=== PATIENT | male | born 1980 | race Two or more races ===

== ENCOUNTER 2022-01-16 03:36 | Emergency (ER) | payer SELFPAY ==
[2022-01-16 04:03] VITALS: BMI 25.7
[2022-01-16] MEDS ORDERED: MAG HYDROX/AL HYDROX/SIMETH 30 ML UNIT-DOSE CUP PO ONE (04:04)
[2022-01-16] MEDS ORDERED: FAMOTIDINE 20 MG/50 ML IVPB 20 MG/50 ML MG IVPB ONE (04:04)
[2022-01-16] MEDS ORDERED: ACETAMINOPHEN 1000 MG/100 ML BAG IVPB ONE (04:04)
[2022-01-16 05:04] LABS: CALCIUM 8.7 mg/dL (8.5-10.1)
[2022-01-16 05:05] LABS: ALBUMIN 4.2 g/dl (3.4-5.0); BLOOD UREA NITROGEN 8.8 mg/dL (7-18); MAGNESIUM 2.1 mg/dL (1.8-2.4)
[2022-01-16 05:06] LABS: HEMATOCRIT 45.3 % (35.4-49); HEMOGLOBIN 15.6 GM/dL (11.7-16.9); MCH 30.9 pg (25.7-33.7); MCHC 34.5 g/dl (32.0-35.9); MEAN CELL VOLUME 89.5 fl (80-96); MEAN PLT VOLUME 9.3 fl (7.5-11.1); PLATELET COUNT 227 10^3/uL (134-434); RBC 5.06 M/mm3 (4.00-5.60); RDW 12.8 % (11.9-15.9); WHITE BLOOD COUNT 12.9 K/mm3 (4.0-10.0)
[2022-01-16 05:08] LABS: CREATININE 0.7 mg/dL (0.55-1.3)
[2022-01-16 05:09] LABS: BILIRUBIN,TOTAL 0.6 mg/dL (0.2-1)
[2022-01-16 05:10] LABS: TOT PROT 7.8 g/dl (6.4-8.2)
[2022-01-16 06:21] VITALS: BP 135/81; PULSE 75; TEMP 98.3
[2022-01-16 10:24] LABS: ANISOCYTOSIS 0; HELMET CELLS 0; HOWELL-JOLLY BODIES 0; MACROCYTOSIS 0; OVALOCYTE 0; ROULEAU 0; SICKELED CELLS 0; TARGET CELLS 0; TEAR DROP CELLS 0; TOXIC GRANULATION 0
== END 2022-01-16 06:38 | disposition home or self-care (01) ==
LOC: JER 03:36
PROC: 3E033GC Introduction of Other Therapeutic Substance into Peripheral Vein, Percutaneous Approach (ICD-10-PCS; principal; 2022-01-16)
DX: R10.13 Epigastric pain (principal)
CPT/HCPCS: 36415; 71046-TC-FY; 80053; 83690; 83735; 84484; 85025; 93005; 93010; 99285-25

== ENCOUNTER 2024-01-31 02:58 | Emergency (ER) | payer SELFPAY ==
[2024-01-31 03:05] VITALS: BMI 30.9
[2024-01-31] MEDS ORDERED: MAG HYDROX/AL HYDROX/SIMETH 30 ML UNIT-DOSE CUP ONE (04:35)
[2024-01-31] MEDS: ONDANSETRON 4 MG/2 ML VIAL IVPUSH ONE (04:50)
[2024-01-31] MEDS: MAG HYDROX/AL HYDROX/SIMETH 30 ML UNIT-DOSE CUP PO ONE (04:50)
[2024-01-31] MEDS: FAMOTIDINE 20 MG/50 ML IVPB 20 MG in PREMIX 50 IVPB ONE (04:50)
[2024-01-31] MEDS: ACETAMINOPHEN 1000 MG/100 ML BAG IVPB ONE (04:50)
[2024-01-31] MEDS ORDERED: ACETAMINOPHEN INJECTION 100 ML IVPB ONE (04:51)
[2024-01-31] MEDS ORDERED: ONDANSETRON 4 MG/2 ML VIAL ONE (04:51)
[2024-01-31] MEDS ORDERED: FAMOTIDINE 20 MG/50 ML IVPB 20 MG/50 ML MG IVPB ONE (04:52)
[2024-01-31 05:26] LABS: BASO % 0.5 % (0-2.0); EOS % 0.2 % (0-4.5); HEMATOCRIT 45.2 % (35.4-49); HEMOGLOBIN 15.9 GM/dL (11.7-16.9); LYMPH % 7.9 % (8-40); MCH 31.6 pg (25.7-33.7); MCHC 35.1 g/dl (32.0-35.9); MEAN PLT VOLUME 9.3 fl (7.5-11.1); MONO % 3.4 % (3.8-10.2); PLATELET COUNT 215 10^3/uL (134-434); RBC 5.02 M/mm3 (4.00-5.60); RDW 12.9 % (11.9-15.9); WHITE BLOOD COUNT 10.9 K/mm3 (4.0-10.0)
[2024-01-31 05:41] LABS: INR 1.07 (0.83-1.09); PROTHROMBIN TIME (PATIENT) 12.4 SEC (9.7-13.0)
[2024-01-31 05:44] LABS: ACTIVATED PTT 33.7 SECONDS (25.2-36.5)
[2024-01-31 05:45] LABS: POTASSIUM 3.3 mmol/L (3.5-5.1)
[2024-01-31 05:48] LABS: ALBUMIN 3.7 g/dl (3.4-5.0); CALCIUM 8.8 mg/dL (8.5-10.1); MAGNESIUM 2.2 mg/dL (1.8-2.4)
[2024-01-31 05:51] LABS: CREATININE 0.6 mg/dL (0.55-1.3)
[2024-01-31 05:53] LABS: TOT PROT 7.6 g/dl (6.4-8.2)
[2024-01-31 06:51] VITALS: BP 160/97; PULSE 118; RESP 16; TEMP 98.5
== END 2024-01-31 07:07 | disposition home or self-care (01) ==
LOC: JER 02:58
PROC: 3E033GC Introduction of Other Therapeutic Substance into Peripheral Vein, Percutaneous Approach (ICD-10-PCS; principal; 2024-01-31)
PROC: 3E033GC Introduction of Other Therapeutic Substance into Peripheral Vein, Percutaneous Approach (ICD-10-PCS; 2024-01-31)
PROC: 3E033GC Introduction of Other Therapeutic Substance into Peripheral Vein, Percutaneous Approach (ICD-10-PCS; 2024-01-31)
DX: R07.89 Other chest pain (principal); R11.2 Nausea with vomiting, unspecified
CPT/HCPCS: 36415; 71045-TC-FY; 80053; 83690; 83735; 84484; 85025; 85610; 85730; 93005; 93010; 99285-25; J0131

== ENCOUNTER 2024-03-26 06:04 | Observation (INO) | payer OTHER ==
[2024-03-26 06:50] LABS: BASO % 0.8 % (0-2.0); EOS % 1.1 % (0-4.5); HEMATOCRIT 44.9 % (35.4-49); HEMOGLOBIN 16.1 GM/dL (11.7-16.9); LYMPH % 21.4 % (8-40); MCH 32.1 pg (25.7-33.7); MCHC 35.9 g/dl (32.0-35.9); MEAN CELL VOLUME 89.4 fl (80-96); MEAN PLT VOLUME 8.3 fl (7.5-11.1); MONO % 6.7 % (3.8-10.2); PLATELET COUNT 224 10^3/uL (134-434); RBC 5.03 M/mm3 (4.00-5.60); RDW 12.9 % (11.9-15.9); WHITE BLOOD COUNT 8.8 K/mm3 (4.0-10.0)
[2024-03-26] MEDS ORDERED: ACETAMINOPHEN INJECTION 100 ML IVPB ONE (06:57)
[2024-03-26] MEDS: ACETAMINOPHEN 1000 MG/100 ML BAG IVPB ONE (07:02)
[2024-03-26] MEDS: LACTATED RINGERS SOLUTION 1000 ML INFUS.BAG IV ONE (07:03)
[2024-03-26 07:07] LABS: POTASSIUM 3.2 mmol/L (3.5-5.1)
[2024-03-26 07:08] LABS: CALCIUM 8.6 mg/dL (8.5-10.1)
[2024-03-26 07:09] LABS: ALBUMIN 3.9 g/dl (3.4-5.0); BLOOD UREA NITROGEN 9.4 mg/dL (7-18)
[2024-03-26 07:12] LABS: CREATININE 0.8 mg/dL (0.55-1.3)
[2024-03-26 07:13] LABS: TOT PROT 7.8 g/dl (6.4-8.2)
[2024-03-26 07:14] LABS: BILIRUBIN,TOTAL 0.5 mg/dL (0.2-1)
[2024-03-26] MEDS: POTASSIUM CHLORIDE ORAL LIQUID 20 MEQ/15 ML PO ONE (07:50)
[2024-03-26] MEDS ORDERED: PANTOPRAZOLE 40 MG TABLET PO ONE (07:50)
[2024-03-26] MEDS ORDERED: NITROGLYCERIN SUBLINGUAL 1/150 0.4 MG TAB ONE ×2 (07:51→08:13)
[2024-03-26] MEDS ORDERED: ASPIRIN 325 MG TABLET ONE (07:52)
[2024-03-26] MEDS: PANTOPRAZOLE 20 MG TABLET PO ONE (08:00)
[2024-03-26] MEDS: ASPIRIN 325 MG TABLET PO ONE (08:00)
[2024-03-26] MEDS: NITROGLYCERIN SUBLINGUAL 1/150 0.4 MG TAB SL ONE (08:10)
[2024-03-26] MEDS ORDERED: SUCRALFATE 1 GM TABLET (FP) ONE (08:48)
[2024-03-26] MEDS ORDERED: POTASSIUM CHLORIDE ORAL LIQUID 20 MEQ/15 ML ONE (08:48)
[2024-03-26] MEDS ORDERED: MAG HYDROX/AL HYDROX/SIMETH 30 ML UNIT-DOSE CUP ONE (08:49)
[2024-03-26] MEDS: MAG HYDROX/AL HYDROX/SIMETH -MYLANTA- ORAL SUSPENSION PO ONE (09:00)
[2024-03-26] MEDS: SUCRALFATE 1 GM TABLET (FP) PO ONE (09:00)
[2024-03-26 10:32] VITALS: RESP 18
[2024-03-26] MEDS: amLODIPine BESYLATE 5 MG TABLET (FP) PO ONE (12:22)
[2024-03-26 16:08] VITALS: BMI 28.8
[2024-03-27] MEDS ORDERED: REGADENOSON 0.4 MG/5 ML PRE-FILLED SYRINGE IVPUSH ONE (09:27)
[2024-03-27] MEDS: REGADENOSON 0.4 MG/5 ML PRE-FILLED SYRINGE IVPUSH ONE (10:30)
[2024-03-27] MEDS: PANTOPRAZOLE 40 MG TABLET PO SCH (11:30)
[2024-03-27] MEDS: amLODIPine BESYLATE 5 MG TABLET (FP) PO SCH (11:40)
[2024-03-27] MEDS: metoPROLOL SUCCINATE 25 MG TAB.SR.24H (FP) PO SCH (14:20)
[2024-03-27] MEDS: amLODIPine BESYLATE 5 MG TABLET (FP) PO ONE (14:21)
[2024-03-27] MEDS: HYDROCHLOROTHIAZIDE 25 MG TABLET (FP) PO SCH (14:32)
[2024-03-27] MEDS: ASPIRIN 81 MG CHEWABLE TABLETS PO SCH (15:48)
[2024-03-27] MEDS: ATORVASTATIN CA 40 MG TABLET (FP) PO SCH (21:16)
[2024-03-28] MEDS: amLODIPine BESYLATE 10 MG TABLET (FP) PO SCH (09:06)
[2024-03-28 12:49] LABS: POTASSIUM 3.7 mmol/L (3.5-5.1)
[2024-03-28 12:51] LABS: CALCIUM 9.4 mg/dL (8.5-10.1)
[2024-03-28 12:52] LABS: ALBUMIN 3.8 g/dl (3.4-5.0); BLOOD UREA NITROGEN 13.2 mg/dL (7-18)
[2024-03-28 12:55] LABS: CREATININE 0.8 mg/dL (0.55-1.3)
[2024-03-28 12:56] LABS: TOT PROT 7.7 g/dl (6.4-8.2)
[2024-03-28 14:21] VITALS: BP 154/89; PULSE 86; TEMP 98.8
== END 2024-03-28 16:20 | disposition left against medical advice (07) ==
LOC: JER 06:04 → JERBED 10:12 → J4S 15:09
PROVIDERS: ADMIT Internal Medicine
PROC: 3E033NZ Introduction of Analgesics, Hypnotics, Sedatives into Peripheral Vein, Percutaneous Approach (ICD-10-PCS; principal; 2024-03-26)
PROC: 3E0337Z Introduction of Electrolytic and Water Balance Substance into Peripheral Vein, Percutaneous Approach (ICD-10-PCS; 2024-03-26)
PROC: 3E033GC Introduction of Other Therapeutic Substance into Peripheral Vein, Percutaneous Approach (ICD-10-PCS; 2024-03-26)
DX: R07.89 Other chest pain (principal); R79.89 Other specified abnormal findings of blood chemistry; I10 Essential (primary) hypertension; R10.13 Epigastric pain
CPT/HCPCS: 36415; 71045-TC-FY; 76705-TC; 78452-TC; 80053; 80061; 83036; 83690; 84484; 85025; 93005; 93010; 93017; 93306-TC; 93308; 97116-GP; 97161-GP; 99285-25; A9502; G0378; J0131; J2785

== ENCOUNTER 2025-01-22 03:01 | Inpatient (IN) | payer OTHER ==
[2025-01-22 03:06] VITALS: BMI 30.2
[2025-01-22] MEDS ORDERED: FAMOTIDINE 20 MG/50 ML IVPB 20 MG/50 ML MG IVPB ONE (03:26)
[2025-01-22] MEDS ORDERED: MAG HYDROX/AL HYDROX/SIMETH 30 ML UNIT-DOSE CUP ONE (03:39)
[2025-01-22] MEDS ORDERED: ACETAMINOPHEN INJECTION 100 ML ONE (03:39)
[2025-01-22 03:55] LABS: ABSOLUTE IMMATURE GRANULOCYTES 0.04 x10^3/uL (0.0-0.031); BASOPHILS # 0.06 x10^3/uL (0.01-0.08); EOSINOPHIL % 0.7 % (0.8-7.0); EOSINOPHILS # 0.07 x10^3/uL (0.04-0.54); HEMATOCRIT 46.5 % (40.1-51.0); HEMOGLOBIN 16.8 g/dL (13.7-17.5); MCHC 36.1 g/dl (32.3-36.5); MEAN CELL VOLUME 86.3 fl (79.0-92.2); MEAN PLT VOLUME 10.9 fl (9.4-12.4); MONOCYTE # 0.43 x10^3/uL (0.30-0.82); MONOCYTE % 4.5 % (5.3-12.2); PLATELET COUNT 253 x10^3/uL (163-337); RDW 11.5 % (12.1-15.9)
[2025-01-22] MEDS: ACETAMINOPHEN 1000 MG/100 ML BAG IVPB ONE (04:09)
[2025-01-22] MEDS: MAG HYDROX/AL HYDROX/SIMETH 30 ML UNIT-DOSE CUP PO ONE (04:09)
[2025-01-22 04:18] LABS: POTASSIUM 3.2 mmol/L (3.5-5.1)
[2025-01-22 04:19] LABS: CALCIUM 8.9 mg/dL (8.5-10.1)
[2025-01-22 04:20] LABS: BLOOD UREA NITROGEN 7.6 mg/dL (7-18)
[2025-01-22 04:23] LABS: CREATININE 0.8 mg/dL (0.55-1.3)
[2025-01-22 04:25] LABS: BILIRUBIN,TOTAL 0.9 mg/dL (0.2-1); TOT PROT 7.8 g/dl (6.4-8.2)
[2025-01-22] MEDS ORDERED: ASPIRIN 81 MG CHEWABLE TABLETS ONE (05:23)
[2025-01-22] MEDS ORDERED: metoPROLOL SUCCINATE 25 MG TAB.SR.24H (FP) PO ONE ×2 (05:23→11:00)
[2025-01-22] MEDS ORDERED: amLODIPine BESYLATE 10 MG TABLET (FP) ONE (05:23)
[2025-01-22] MEDS ORDERED: LOSARTAN POTASSIUM 50 MG TABLET ONE (05:23)
[2025-01-22] MEDS ORDERED: HEPARIN NA (PORCINE) 5,000 UNITS/ML 1ML VIAL IVPUSH PRN ×3 (05:24→15:16)
[2025-01-22] MEDS ORDERED: POTASSIUM CHLORIDE ORAL LIQUID 20 MEQ/15 ML ONE (05:24)
[2025-01-22] MEDS: ASPIRIN 81 MG CHEWABLE TABLETS PO ONE (05:29)
[2025-01-22] MEDS: POTASSIUM CHLORIDE ORAL LIQUID 20 MEQ/15 ML PO ONE (05:29)
[2025-01-22] MEDS: metoPROLOL SUCCINATE 25 MG TAB.SR.24H (FP) PO ONE ×2 (05:30→10:23)
[2025-01-22] MEDS: amLODIPine BESYLATE 10 MG TABLET (FP) PO ONE (05:30)
[2025-01-22] MEDS: LOSARTAN POTASSIUM 50 MG TABLET PO ONE ×2 (05:30→10:23)
[2025-01-22] MEDS ORDERED: HEPARIN INFUSION - 25,000 UNITS/500 ML INFUS.BAG IVPB ONE (05:31)
[2025-01-22] MEDS: HEPARIN INFUSION - 25,000 UNITS/500 ML INFUS.BAG IVPB SCH (05:54)
[2025-01-22 06:10] LABS: INR 1.17 (0.83-1.09); PROTHROMBIN TIME (PATIENT) 12.7 SEC (9.7-13.0)
[2025-01-22 06:13] LABS: ACTIVATED PTT 31.5 SECONDS (25.2-36.5)
[2025-01-22] MEDS: FAMOTIDINE 20 MG TABLET PO SCH (10:23)
[2025-01-22] MEDS: HEPARIN NA (PORCINE) 5,000 UNITS/ML 1ML VIAL IVPUSH PRN (15:26)
[2025-01-22 15:44] VITALS: RESP 18
[2025-01-22] MEDS: NITROGLYCERIN 2% OINTMENT - 1GM PACKET TD ONE (18:27)
[2025-01-22] MEDS: ROSUVASTATIN CA 20 MG TABLET PO SCH (21:21)
[2025-01-23 07:51] LABS: HEMATOCRIT 46.5 % (40.1-51.0); HEMOGLOBIN 16.1 g/dL (13.7-17.5); MCHC 34.6 g/dl (32.3-36.5); MEAN CELL VOLUME 88.9 fl (79.0-92.2); PLATELET COUNT 219 x10^3/uL (163-337); RDW 11.9 % (12.1-15.9)
[2025-01-23 08:09] LABS: POTASSIUM 3.4 mmol/L (3.5-5.1)
[2025-01-23 08:21] LABS: ALBUMIN 3.5 g/dl (3.4-5.0); BLOOD UREA NITROGEN 12.4 mg/dL (7-18); MAGNESIUM 2.2 mg/dL (1.8-2.4)
[2025-01-23 08:22] LABS: PHOSPHOROUS 2.7 mg/dL (2.5-4.9)
[2025-01-23 08:24] LABS: BILIRUBIN,TOTAL 1.8 mg/dL (0.2-1); CREATININE 0.7 mg/dL (0.55-1.3)
[2025-01-23] MEDS: amLODIPine BESYLATE 10 MG TABLET (FP) PO SCH (09:29)
[2025-01-23] MEDS: LOSARTAN POTASSIUM 50 MG TABLET PO SCH (09:29)
[2025-01-23 09:48] LABS: BILIRUBIN,DIRECT 0.4 mg/dL (0.0-0.2)
[2025-01-23] MEDS ORDERED: metoPROLOL SUCCINATE 25 MG TAB.SR.24H (FP) PO ONE (09:58)
[2025-01-23] MEDS ORDERED: metoPROLOL SUCCINATE 25 MG TAB.SR.24H (FP) PO SCH ×2 (10:00)
[2025-01-23] MEDS ORDERED: LOSARTAN POTASSIUM 50 MG TABLET PO SCH (10:00)
[2025-01-23] MEDS: ACETAMINOPHEN 1000 MG/100 ML BAG IVPB PRN (11:01)
[2025-01-23] MEDS: PIPERACILLIN/TAZOB 4.5 GM 4.5 GM in DEXTROSE 5%-WATER 100 ML IVPB ONE (11:16)
[2025-01-23 13:07] LABS: URINE APPEARANCE Clear; URINE BILIRUBIN Negative (NEGATIVE); URINE COLOR Yellow; URINE GLUCOSE (UA) Negative (NEGATIVE); URINE KETONE Negative (NEGATIVE); URINE LEUK ESTERASE Negative (NEGATIVE); URINE NITRITE Negative (NEGATIVE); URINE PROTEIN 2+ (NEGATIVE)
[2025-01-23] MEDS: POTASSIUM CHLORIDE ORAL LIQUID 20 MEQ/15 ML PO ONE (13:16)
[2025-01-23 13:47] VITALS: BP 125/89; PULSE 85; TEMP 99
[2025-01-23] MEDS ORDERED: POTASSIUM CHLORIDE ORAL LIQUID 20 MEQ/15 ML PO ONE (17:30)
== END 2025-01-23 14:05 | disposition short-term general hospital (02) | DRG 190 ==
LOC: JER 03:01 → JERBED 07:32 → J4W 08:45
PROVIDERS: ADMIT Internal Medicine; ATTEND Student in an Organized Health Care Education/Training Program
DX: I21.4 Non-ST elevation (NSTEMI) myocardial infarction (principal); I10 Essential (primary) hypertension; E78.5 Hyperlipidemia, unspecified; K21.9 Gastro-esophageal reflux disease without esophagitis; R07.89 Other chest pain; R10.13 Epigastric pain; I16.0 Hypertensive urgency
CPT/HCPCS: 0241U-QW; 36415; 71046-TC-FY; 76705-TC; 80053; 81003; 82248; 83690; 83735; 84100; 84484; 85025; 85027; 85610; 85730; 87040; 87635; 93005; 93010; 93306-TC; 99285-25; J0131; J1644